=== PATIENT | female | born 1945 | race Caucasian/White ===

== ENCOUNTER → 2020-11-01 11:29 | Outpatient (CLI) | payer MEDICARE, BC, SELFPAY ==
[2020-11-01 12:49] LABS: COVID19 -Nasal RAPID Negative (Negative)
== END ==
PROVIDERS: PCP Internal Medicine; Referring Provider Student in an Organized Health Care Education/Training Program; Visit Provider Student in an Organized Health Care Education/Training Program
DX: Z01.812 Encounter for preprocedural laboratory examination (principal); Z20.822 Contact with and (suspected) exposure to COVID-19
CPT/HCPCS: 87635; C9803

== ENCOUNTER 2020-11-04 07:56 | Day surgery (SDC) | payer MEDICARE, BC, SELFPAY ==
[2020-11-04] MEDS: PROPARACAINE 0.5% OPHTH SOL 2 DROPS EYE-OP (08:39)
[2020-11-04 08:40] VITALS: BP 134/68; PULSE 67; RESP 18; TEMP 36.2; O2SAT 99; BMI 30.1
[2020-11-04] MEDS: CATARACT EYE COMPOUND (10 DROPS/SYRINGE) 3 DROPS EYE-OP (08:50)
--- NOTE | 2020-11-04 09:34 | PM.PREOP ---
Pre-operative Note Interval Note History & Physical reviewed/Exam performed by Physician: Yes Changes to H&P: No
--- NOTE | 2020-11-04 09:34 | PM.OP.1 ---
Operative Date/Time/Diagnoses Pre-op diagnosis: Nuclear cataract right eye Procedure & Clinicians Procedure: Cataract Surgery Same procedure as scheduled: Yes Surgeon: José Miguel Lee Anesthesia Type: MAC +/- and Sedation Operative Notes Procedure in detail: Patient brought to the operating suite. Tetracaine drops placed in the right eye. Patient was prepped and draped in sterile manner. Wire lid speculum was placed in the eye. Betadine drops were placed on the eye. This was irrigated. Lidocaine jelly was placed on the eye. A paracentesis port was created with a side-port blade. 0.1 mL 1% preservative free lidocaine was injected into the anterior chamber. The anterior chamber was deepened with viscoelastic. 2.6 mm keratome was used to create a temporal clear corneal incision. Cystotome and Utrata forceps were used to create continuous tear capsulorrhexis. Balanced salt solution was used to hydro dissect the nucleus. The phacoemulsification handpiece was inserted and the nucleus was removed using the stop and chop technique. The irrigation aspiration handpiece was inserted and the remaining cortex was removed. Anterior chamber was deepened with viscoelastic. An Ortiz ZCB00 intraocular lens with a power of 19.5 was injected into the capsular bag. Irrigation aspiration handpiece was inserted and the remaining viscoelastic was removed. Incision was hydrated with balanced salt solution and found to be leak free with pressure with Weck-Pia sponges. 0.1 mL Vigamox injected anterior chamber. 0.3 mL Kenalog 10 mg was injected subconjunctivally. Lid speculum was removed. The patient left the operating room in excellent condition. Complications: none Post-operative Condition: stable Disposition: same day surgery
[2020-11-04] MEDS: MOXIFLOXACIN INJ 4 MG/0.8 ML VIAL 0.5 MG EYE-OP (09:50)
[2020-11-04] MEDS: PHENYLEPHRINE/LIDOCAINE VIAL (OR) 0.2 ML EYE-OP (09:50)
[2020-11-04] MEDS: TRIAMCINOLONE 50 MG/5 ML VIAL INJ (09:50)
[2020-11-04] MEDS: LIDOCAINE 2% (GLYDO) 6 ML GEL TOP (09:51)
[2020-11-04] MEDS: TETRACAINE 0.5% OPHTH DROPS 4 ML 2 DROPS EYE-OP (09:51)
[2020-11-04] MEDS: BALANCED SALT IRRIG SOLN NO.2 500 ML, EPINEPHrine 1 MG IRR (09:51)
[2020-11-04] MEDS: CHONDROIDTIN/SOD HYALURONATE 1.05 ML SYRINGE INTRAOCULA (09:51)
[2020-11-04 10:05] VITALS: BP 119/68; PULSE 63; RESP 14; TEMP 36.2; O2SAT 99
== END 2020-11-04 10:20 | disposition home or self-care (01) ==
PROVIDERS: PCP Internal Medicine; Referring Provider Ophthalmology; Visit Provider Ophthalmology
PROC: (CPT 66984; principal; 2020-11-04 09:45)
DX: H25.11 Age-related nuclear cataract, right eye (principal); I10 Essential (primary) hypertension; F41.9 Anxiety disorder, unspecified
CPT/HCPCS: 66984; J0171; J2250; J3010; J3301

== ENCOUNTER → 2020-12-22 13:56 | Outpatient (CLI) | payer MEDICARE, BC, SELFPAY ==
[2020-12-22 14:31] LABS: Add Manual Diff / Slide Review NO; Basophils Absolute Auto 100 /uL (0-100); Basophils Percent Auto 0.8 % (0-2); Eosinophils Absolute Auto 200 /uL (0-450); Eosinophils Percent Auto 2.8 % (2-4); Hematocrit 33.8 % (36-46); Hemoglobin 11.3 g/dL (12.0-16.0); Lymphocytes Absolute Auto 1600 /uL (1100-4500); Lymphocytes Percent Auto 19.5 % (25-40); Mean Corpuscular HGB Conc 33.4 % (30-36); Mean Corpuscular Hemoglobin 29.4 PG (26-34); Mean Corpuscular Volume 88.1 fL (80-100); Monocytes Absolute Auto 600 /uL (0-900); Monocytes Percent Auto 6.9 % (3-14); Neutrophils Absolute Auto 5900 /uL (1500-7000); Platelet Count 281 X10^3/uL (150-400); Red Blood Cell Count 3.84 X10^6/uL (4.0-5.2); Red Cell Distribution Width 13.3 % (11.6-14.8); White Blood Cell Count 8.4 X10^3/uL (4.5-11.0)
[2020-12-22 15:02] LABS: Alanine Aminotransferase 17 IU/L (<35); Albumin 4.1 g/dL (3.5-5.0); Albumin Globulin Ratio 1.2 (1.0-2.8); Alkaline Phosphatase 78 U/L (38-126); Aspartate Aminotransferase 22 IU/L (14-36); BUN Creatinine Ratio 17.9 (6-22); Bilirubin Total 0.2 mg/dL (0.2-1.3); Blood Urea Nitrogen 17 mg/dL (7-17); Calcium 9.6 mg/dL (8.4-10.2); Carbon Dioxide 23 mmol/L (22-32); Chloride 106 mmol/L (98-107); Estimated Glomerular Filt Rate 57.7 mL/min (>60); Globulin 3.3 g/dL (1.7-4.1); Glucose 156 mg/dL (80-110); HEMOLYSIS < 15 (0-50); Iron 53 ug/dL (37-170); Potassium 4.3 mmol/L (3.4-5.1); Sodium 137 mmol/L (137-145); Total Protein 7.4 g/dL (6.3-8.2)
[2020-12-22 15:12] LABS: Percent Iron Saturation 16 % (15-50); Total Iron Binding Capacity 334 ug/dL (265-497); Transferrin 270 mg/dL (206-381)
[2020-12-22 15:13] LABS: Free T4, Direct Thyroxine 1.14 ng/dL (0.78-2.19)
[2020-12-22 15:27] LABS: Thyroid Stimulating Hormone 1.64 uIU/mL (0.47-4.68)
[2020-12-22 15:45] LABS: Vitamin B12 210 pg/mL (239-931)
[2020-12-22 15:49] LABS: Vitamin D 25 Hydroxy (D3) 34.4 ng/mL (30.0-100.0)
== END ==
PROVIDERS: PCP Internal Medicine; Referring Provider Internal Medicine; Visit Provider Internal Medicine
DX: E55.9 Vitamin D deficiency, unspecified (principal); I10 Essential (primary) hypertension; K59.09 Other constipation; L65.9 Nonscarring hair loss, unspecified; R11.0 Nausea
CPT/HCPCS: 36415; 80053; 82306; 82607; 83540; 83550; 84439; 84443; 85025

== ENCOUNTER → 2021-01-05 12:56 | Outpatient (CLI) | payer MEDICARE, BC, SELFPAY ==
[2021-01-05 16:07] LABS: COVID19 -Nasal RAPID Negative (Negative)
== END ==
PROVIDERS: PCP Internal Medicine; Visit Provider Physician Assistant
DX: Z01.812 Encounter for preprocedural laboratory examination (principal); Z20.822 Contact with and (suspected) exposure to COVID-19
CPT/HCPCS: 87635; C9803

== ENCOUNTER 2021-01-06 10:22 | Day surgery (SDC) | payer MEDICARE, BC, SELFPAY ==
[2021-01-06] MEDS: PROPARACAINE 0.5% OPHTH SOL 2 DROPS EYE-OP (10:48)
[2021-01-06 10:51] VITALS: BP 144/67; PULSE 50; RESP 18; TEMP 36.6; O2SAT 98; BMI 31.8
--- NOTE | 2021-01-06 10:54 | PM.PREOP ---
Pre-operative Note Interval Note History & Physical reviewed/Exam performed by Physician: Yes Changes to H&P: No
[2021-01-06] MEDS: CATARACT EYE COMPOUND (10 DROPS/SYRINGE) 3 DROPS EYE-OP (10:55)
--- NOTE | 2021-01-06 10:55 | PM.OP.1 ---
Operative Date/Time/Diagnoses Pre-op diagnosis: Nuclear Cataract Left eye Post-op diagnosis: same Procedure & Clinicians Same procedure as scheduled: Yes Surgeon: José Miguel Lee Anesthesia Type: MAC +/- and Sedation Operative Notes Procedure in detail: Patient brought to the operating suite. Tetracaine drops placed in the left eye. Patient was prepped and draped in sterile manner. Wire lid speculum was placed in the eye. Betadine drops were placed on the eye. This was irrigated. Lidocaine jelly was placed on the eye. A paracentesis port was created with a side-port blade. 0.1 mL 1% preservative free lidocaine was injected into the anterior chamber. The anterior chamber was deepened with viscoelastic. 2.6 mm keratome was used to create a temporal clear corneal incision. Cystotome and Utrata forceps were used to create continuous tear capsulorrhexis. Balanced salt solution was used to hydro dissect the nucleus. The phacoemulsification handpiece was inserted and the nucleus was removed using the stop and chop technique. The irrigation aspiration handpiece was inserted and the remaining cortex was removed. Anterior chamber was deepened with viscoelastic. An Ortiz DIB00 intraocular lens with a power of 20.5 was injected into the capsular bag. Irrigation aspiration handpiece was inserted and the remaining viscoelastic was removed. Incision was hydrated with balanced salt solution and found to be leak free with pressure with Weck-Pia sponges. 0.1 mL Vigamox injected anterior chamber. 0.3 mL Kenalog 10 mg was injected subconjunctivally. Lid speculum was removed. The patient left the operating room in excellent condition. Complications: none Post-operative Condition: stable Disposition: same day surgery
[2021-01-06] MEDS: TRIAMCINOLONE 50 MG/5 ML VIAL INJ (11:53)
[2021-01-06] MEDS: MOXIFLOXACIN INJ 4 MG/0.8 ML VIAL 0.5 MG EYE-OP (11:54)
[2021-01-06] MEDS: PHENYLEPHRINE/LIDOCAINE VIAL (OR) 0.2 ML EYE-OP (11:54)
[2021-01-06] MEDS: TETRACAINE 0.5% OPHTH DROPS 4 ML 2 DROPS EYE-OP (11:54)
[2021-01-06] MEDS: CHONDROIDTIN/SOD HYALURONATE 1.05 ML SYRINGE INTRAOCULA (11:54)
[2021-01-06] MEDS: LIDOCAINE 2% (GLYDO) 6 ML GEL TOP (11:55)
[2021-01-06] MEDS: BALANCED SALT IRRIG SOLN NO.2 500 ML, EPINEPHrine 1 MG IRR (11:55)
[2021-01-06 12:12] VITALS: BP 132/73; PULSE 49; RESP 14; TEMP 36.6; O2SAT 97
[2021-01-06 12:50] VITALS: BP 143/68; PULSE 46; RESP 14; TEMP 36.8; O2SAT 98
== END 2021-01-06 12:56 | disposition home or self-care (01) ==
PROVIDERS: PCP Internal Medicine; Referring Provider Ophthalmology; Visit Provider Ophthalmology
PROC: (CPT 66984; principal; 2021-01-06 12:15)
DX: H25.12 Age-related nuclear cataract, left eye (principal); I10 Essential (primary) hypertension; F41.9 Anxiety disorder, unspecified; K21.9 Gastro-esophageal reflux disease without esophagitis; F32.9 Major depressive disorder, single episode, unspecified
CPT/HCPCS: 66984; J0171; J2250; J3010; J3301

== ENCOUNTER → 2021-04-23 16:42 | Outpatient (CLI) | payer MEDICARE, BC, SELFPAY ==
[2021-04-23 17:47] LABS: BUN Creatinine Ratio 13.2 (6-22); Blood Urea Nitrogen 12 mg/dL (7-17); Calcium 9.6 mg/dL (8.4-10.2); Carbon Dioxide 27 mmol/L (22-32); Chloride 102 mmol/L (98-107); Estimated Glomerular Filt Rate > 60.0 mL/min (>60); Glucose 114 mg/dL (80-110); HEMOLYSIS < 15 (0-50); Potassium 4.1 mmol/L (3.4-5.1); Sodium 138 mmol/L (137-145)
== END ==
PROVIDERS: PCP Internal Medicine; Referring Provider Internal Medicine; Visit Provider Internal Medicine
DX: I10 Essential (primary) hypertension (principal)
CPT/HCPCS: 36415; 80048

== ENCOUNTER → 2021-07-13 17:34 | Outpatient (CLI) | payer MEDICARE, BC, SELFPAY ==
--- NOTE | 2021-07-13 | DI.MG.S_ITS ---
BILATERAL DIGITAL SCREENING MAMMOGRAM 3D/2D WITH CAD: 07/13/2021 CLINICAL: Routine screening. Family history of breast cancer. Comparison is made to exams dated: 01/29/2019 mammogram and 01/18/2019 mammogram - outside. The tissue of both breasts is heterogeneously dense. This may lower the sensitivity of mammography. Current study was also evaluated with a Computer Aided Detection (CAD) system. No significant masses, calcifications, or other findings are seen in either breast. There has been no significant interval change. IMPRESSION: NEGATIVE There is no mammographic evidence of malignancy. A 1 year screening mammogram is recommended. This exam was interpreted at Station ID: [id number]. NOTE: For mammograms, a report in lay terms will be sent to the patient. Approximately 15% of breast malignancies will not be visualized mammographically. In the management of a palpable breast mass, a negative mammogram must not discourage biopsy of a clinically suspicious lesion. Electronically Signed By: Avel alonso/julee:07/21/2021 17:36:38 letter sent: Normal Exam ACR BI-RADS Category 1: Negative 3341F
== END ==
PROVIDERS: PCP Internal Medicine; Referring Provider Internal Medicine; Visit Provider Internal Medicine
DX: Z12.31 Encounter for screening mammogram for malignant neoplasm of breast (principal); Z80.3 Family history of malignant neoplasm of breast
CPT/HCPCS: 77063; 77066; 77067; G0279

== ENCOUNTER → 2021-08-04 16:05 | Outpatient (CLI) | payer MEDICARE, BC, SELFPAY ==
[2021-08-04 17:55] LABS: Estimated Glomerular Filt Rate > 60.0 mL/min (>60)
== END ==
PROVIDERS: PCP Internal Medicine; Referring Provider Internal Medicine; Visit Provider Internal Medicine
DX: Z01.812 Encounter for preprocedural laboratory examination (principal)
CPT/HCPCS: 36415; 82565

== ENCOUNTER → 2021-09-02 12:47 | Outpatient (CLI) | payer MEDICARE, BC, SELFPAY ==
--- NOTE | 2021-09-02 | DI.CT.S_ITS ---
PROCEDURE: CT ABDOMEN PELVIS W CON INDICATIONS: ABDOMINAL PAIN TECHNIQUE: After the administration of oral and IV contrast, axial sections were acquired from the lung bases to the pubic symphysis. Coronal and sagittal reformats were performed. For radiation dose reduction, the following was used: automated exposure control, adjustment of mA and/or kV according to patient size. COMPARISON: None. FINDINGS: Image quality: Excellent. Lung bases: Unremarkable. Heart: No significant findings. ABDOMEN: Liver: Diffuse decreased attenuation, compatible hepatic steatosis. 8 mm hypoattenuating lesion in the right hepatic lobe, most consistent with a cyst or hemangioma. Gallbladder: Surgically absent. Biliary ducts: Unremarkable. Pancreas: Unremarkable. Spleen: Unremarkable. Adrenal Glands: Unremarkable. Kidneys and Ureters: Unremarkable. Stomach and Bowel: No evidence of intestinal obstruction or inflammatory change. The appendix is not well visualized. Mild to moderate stool burden throughout the colon. Peritoneum: No abnormal intraperitoneal fluid. No free air. Ventral Wall: Small periumbilical fat containing hernia. Abdominal Nodes: No retroperitoneal or mesenteric adenopathy by size criteria. Vessels: Aorta and inferior vena cava are normal in size. PELVIS: Pelvic Organs: The uterus appears surgically absent. A 3.5 cm hypoattenuating lesion is seen in the right adnexa, most consistent with an ovarian or peritoneal inclusion cyst. Bladder: Unremarkable. Pelvic Nodes: No enlarged lymph nodes. Miscellaneous: No inguinal hernias are seen. Bones: Grade 1 anterolisthesis at L4-5. Moderate to advanced disc height loss with vacuum phenomena at L5-S1. Multifocal degenerative change. IMPRESSION: 1. No significant abnormality. Dictated by: Trino Llamas M.D. on 09/02/2021 at 16:18 Approved by: Trino Llamas M.D. on 09/02/2021 at 16:22
[2021-09-02 13:31] LABS: BUN Creatinine Ratio 14.1 (6-22); Blood Urea Nitrogen 14 mg/dL (7-17); Estimated Glomerular Filt Rate 54.8 mL/min (>60)
== END ==
PROVIDERS: PCP Internal Medicine; Referring Provider Internal Medicine; Visit Provider Internal Medicine
DX: R10.9 Unspecified abdominal pain (principal); R11.0 Nausea; K42.9 Umbilical hernia without obstruction or gangrene; Z90.49 Acquired absence of other specified parts of digestive tract
CPT/HCPCS: 36415; 74177; 82565; 84520; Q9967

== ENCOUNTER → 2022-01-22 13:37 | Outpatient (CLI) | payer MEDICARE, BC, SELFPAY ==
--- NOTE | 2022-01-22 13:39 | DI.MG.S_ITS ---
UNILATERAL RIGHT DIGITAL DIAGNOSTIC MAMMOGRAM 3D/2D: 01/22/2022 CLINICAL: Diffuse right breast pain. Comparison is made to exams dated: 07/13/2021 mammogram - [facility], 06/18/2019 ultrasound, and 01/29/2019 ultrasound - outside. The tissue of right breast is heterogeneously dense. This may lower the sensitivity of mammography. No significant masses, calcifications, or other findings are seen in the breast. Specifically, no finding to explain the patient's chronic subareolar pain. IMPRESSION: NEGATIVE There is no abnormality seen in the right breast to correspond with the chronic pain in the sub-areolar depth. There is no mammographic evidence of malignancy. Return to annual mammogram screening schedule is recommended. Future imaging is recommended as follows: 07/14/2022 screening mammogram. The patient should follow up with primary care provider for chronic symptoms. Findings and recommendations were conveyed to the patient at time of exam. Based on the Tyrer Cuzick model (a risk assessment model) the patient's lifetime risk is 4.8% and her 10 year risk is 4.8%. According to the ACR, ACS, and NCCN guidelines, an annual breast MRI exam along with mammogram is recommended if the patient's lifetime risk is 20% or greater. This exam was interpreted at Station ID: [id number]. NOTE: For mammograms, a report in lay terms will be sent to the patient. Approximately 15% of breast malignancies will not be visualized mammographically. In the management of a palpable breast mass, a negative mammogram must not discourage biopsy of a clinically suspicious lesion. Electronically Signed By: Lyric thurman/:01/22/2022 14:23:26 letter sent: Normal Exam ACR BI-RADS Category 1: Negative 3341F
== END ==
PROVIDERS: PCP Internal Medicine; Referring Provider Internal Medicine; Visit Provider Internal Medicine
DX: N64.4 Mastodynia (principal)
CPT/HCPCS: 77065; G0279

== ENCOUNTER → 2022-08-19 13:23 | Outpatient (CLI) | payer MEDICARE, BC, SELFPAY ==
--- NOTE | 2022-08-19 13:25 | DI.MG.S_ITS ---
BILATERAL DIGITAL DIAGNOSTIC MAMMOGRAM 3D/2D: 08/19/2022 CLINICAL: Right breast pain. Comparison is made to exams dated: 01/22/2022 mammogram, 07/13/2021 mammogram - [facility], 06/18/2019 ultrasound, and 01/29/2019 mammogram - outside. Both breasts are heterogeneously dense, which may obscure small masses (category c / 51-75% glandular tissue). No significant masses, calcifications, or other findings are seen in either breast. There has been no significant interval change. IMPRESSION: NEGATIVE There is no mammographic evidence of malignancy. A 1 year screening mammogram is recommended. Based on the Tyrer Cuzick model (a risk assessment model) the patient's lifetime risk is 4.8% and her 10 year risk is 4.8%. According to the ACR, ACS, and NCCN guidelines, an annual breast MRI exam along with mammogram is recommended if the patient's lifetime risk is 20% or greater. This exam was interpreted at Station ID: [id number]. NOTE: For mammograms, a report in lay terms will be sent to the patient. Approximately 15% of breast malignancies will not be visualized mammographically. In the management of a palpable breast mass, a negative mammogram must not discourage biopsy of a clinically suspicious lesion. Electronically Signed By: Spenser Cortes M.D., jr/julee:08/19/2022 13:55:31 letter sent: Normal Exam ACR BI-RADS Category 1: Negative 3341F
== END ==
PROVIDERS: PCP Internal Medicine; Referring Provider Internal Medicine; Visit Provider Internal Medicine
DX: N64.4 Mastodynia (principal)
CPT/HCPCS: 77066; G0279

== ENCOUNTER → 2022-08-23 16:09 | Outpatient (CLI) | payer MEDICARE, BC, SELFPAY ==
[2022-08-23 16:58] LABS: Add Manual Diff / Slide Review NO; Basophils Absolute Auto 100 /uL (0-100); Basophils Percent Auto 0.9 % (0-2); Eosinophils Absolute Auto 200 /uL (0-450); Eosinophils Percent Auto 1.8 % (2-4); Hematocrit 36.5 % (36-46); Hemoglobin 12.2 g/dL (12.0-16.0); Lymphocytes Absolute Auto 2200 /uL (1100-4500); Mean Corpuscular HGB Conc 33.5 % (30-36); Mean Corpuscular Hemoglobin 28.9 PG (26-34); Mean Corpuscular Volume 86.1 fL (80-100); Monocytes Absolute Auto 600 /uL (0-900); Monocytes Percent Auto 6.2 % (3-14); Neutrophils Absolute Auto 6600 /uL (1500-7000); Neutrophils Percent Auto 68.1 % (50-75); Platelet Count 278 X10^3/uL (150-400); Red Blood Cell Count 4.24 X10^6/uL (4.0-5.2); Red Cell Distribution Width 13.3 % (11.6-14.8); White Blood Cell Count 9.7 X10^3/uL (4.5-11.0)
[2022-08-23 17:09] LABS: Alanine Aminotransferase 23 IU/L (<35); Albumin 4.2 g/dL (3.5-5.0); Albumin Globulin Ratio 1.3 (1.0-2.8); Alkaline Phosphatase 91 U/L (38-126); Aspartate Aminotransferase 23 IU/L (14-36); BUN Creatinine Ratio 15.6 (6-22); Bilirubin Total 0.3 mg/dL (0.2-1.3); Blood Urea Nitrogen 12 mg/dL (7-17); Calcium 9.4 mg/dL (8.4-10.2); Carbon Dioxide 25 mmol/L (22-32); Chloride 100 mmol/L (98-107); Estimated Glomerular Filt Rate > 60 mL/min (>60); Globulin 3.3 g/dL (1.7-4.1); Glucose 147 mg/dL (80-110); HEMOLYSIS < 15 (0-50); Potassium 4.1 mmol/L (3.4-5.1); Sodium 137 mmol/L (137-145); Total Protein 7.5 g/dL (6.3-8.2)
[2022-08-23 17:39] LABS: TSH w/ Reflex to FT4 1.71 uIU/mL (0.47-4.68)
[2022-08-23 18:03] LABS: Erythrocyte Sedimentation Rate 40 MM/HR (0-20)
== END ==
PROVIDERS: PCP Internal Medicine; Referring Provider Internal Medicine; Visit Provider Internal Medicine
DX: M31.6 Other giant cell arteritis (principal); I10 Essential (primary) hypertension; F41.1 Generalized anxiety disorder; R25.1 Tremor, unspecified
CPT/HCPCS: 36415; 80053; 84443; 85025; 85651

== ENCOUNTER → 2022-12-29 08:48 | Outpatient (CLI) | payer MEDICARE, BC, SELFPAY ==
--- NOTE | 2022-12-29 | DI.NM.S_ITS ---
PROCEDURE: NM GASTRIC EMPTYING STUDY RADIOPHARMACEUTICAL: 1 mCi Tc-99m sulfur colloid in an egg sandwich. INDICATIONS: NAUSEA/ABDOMINAL PAIN, RUQ TECHNIQUE: A Tc-99m labeled sulfur colloid labeled egg sandwich or oatmeal was served to the patient. Anterior and posterior planar images of the abdomen were obtained at 0 minutes and 30 minutes, then at hourly intervals up to 4 hours. The patient was upright and ambulating during the interval. COMPARISON: None. FINDINGS: The stomach has normal size, morphology, and position. There is normal emptying of solid gastric contents from the stomach by visual inspection. No gastroesophageal reflux is visualized. The percentage of tracer retained at specific time points are as follows: Time point Percent gastric retention Normal range 30 minutes 86% 70% or more 1 hour 76% 30% to 90% 2 hours 44% 60% or less 3 hours 21% 30% or less 4 hours 6% 10% or less IMPRESSION: Normal gastric emptying study. Dictated by: Chantal Hernandez M.D. on 12/29/2022 at 18:41 Approved by: Chantal Hernandez M.D. on 12/29/2022 at 18:42
== END ==
PROVIDERS: PCP Internal Medicine; Referring Provider Internal Medicine Gastroenterology; Visit Provider Internal Medicine Gastroenterology
DX: R11.0 Nausea (principal); R10.11 Right upper quadrant pain
CPT/HCPCS: 78264; A9541

== ENCOUNTER → 2023-05-25 12:39 | Outpatient (CLI) | payer MEDICARE, BC, SELFPAY ==
--- NOTE | 2023-05-25 | DI.RAD.S_ITS ---
PROCEDURE: FL UPPER GI SMALL BOWEL INDICATIONS: Right upper quadrant pain COMPARISON: None. FINDINGS: KUB: Preprocedural transition advisor film shows a normal bowel gas pattern. No suspicious abdominal calcifications. Visualized solid organ contours appear normal in size. No suspicious bony abnormalities. Esophagus: Air-contrast views demonstrate a normal mucosal pattern. On single-contrast views, there is normal peristalsis. No fixed strictures, extrinsic mass effects, or diverticula. There is a small sliding-type hiatal hernia present and some mild to moderate spontaneous gastroesophageal reflux noted during the examination. There is normal transit of a calibrated barium tablet through the esophagus. Stomach: The gastric lumen is normally distensible, and has normal rugal fold thickness. No mucosal masses or ulcers. The pylorus and duodenal bulb have a normal morphology. Small bowel: Duodenal folds appear normal in thickness. There is normal transit time of barium through the small intestine. Small bowel loops appear normal in caliber throughout. Jejunal and ileal folds are smooth and normal in thickness. No strictures, intraluminal masses, or extrinsic mass effects. The terminal ileum is identified and appears normal. IMPRESSION: 1. Small sliding-type hiatal hernia. 2. Mild to moderate spontaneous gastroesophageal reflux noted during the examination. Dictated by: Federico Choudhary M.D. on 05/25/2023 at 15:27 Approved by: Federico Choudhary M.D. on 05/25/2023 at 15:29
== END ==
PROVIDERS: PCP Internal Medicine; Referring Provider Internal Medicine Gastroenterology; Visit Provider Internal Medicine Gastroenterology
DX: R10.11 Right upper quadrant pain (principal); K44.9 Diaphragmatic hernia without obstruction or gangrene; K21.9 Gastro-esophageal reflux disease without esophagitis
CPT/HCPCS: 74240; 74248

== ENCOUNTER 2024-03-09 13:57 | Emergency (ER) | payer MEDICARE, BC, SELFPAY ==
[2024-03-09 14:06] VITALS: BP 161/84; PULSE 89; RESP 18; TEMP 37.1; O2SAT 97; BMI 32.2
--- NOTE | 2024-03-09 14:14 | DI.RAD.S_ITS ---
PROCEDURE: XR CHEST 1V INDICATIONS: chest pain TECHNIQUE: One view of the chest was acquired. COMPARISON: None. FINDINGS: Mild bilateral diffuse peribronchial thickening some of which may be related to expiratory result with mild subsegmental atelectasis although bronchitis, viral infection or other process could be considered. Mild calcifications of the aortic arch and mildly tortuous descending aorta. Mild to moderate degenerate changes of the thoracic spine and shoulders. Cardiopericardial silhouette and pulmonary vasculature within normal limits for portable AP view. No pneumothorax, no pleural effusion, no lobar consolidation IMPRESSION: Mild bilateral diffuse peribronchial thickening as discussed above, bronchitis, viral infection or other process could be considered. If symptoms persist or worsen, or there is high clinical suspicion of thoracic abnormality, CT could be performed. Dictated by: Alex Hazel M.D. on 03/09/2024 at 16:11 Approved by: Alex Hazel M.D. on 03/09/2024 at 16:13
--- NOTE | 2024-03-09 14:38 | EKG_ITS ---
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
[2024-03-09 14:46] VITALS: BP 155/69
[2024-03-09 14:54] LABS: Add Manual Diff / Slide Review NO; Basophils Absolute Auto 100 /uL (0-100); Basophils Percent Auto 1.3 % (0-2); Eosinophils Absolute Auto 200 /uL (0-450); Eosinophils Percent Auto 2.2 % (2-4); Hematocrit 37.9 % (36-46); Hemoglobin 12.8 g/dL (12.0-16.0); Lymphocytes Absolute Auto 2400 /uL (1100-4500); Lymphocytes Percent Auto 24.5 % (25-40); Mean Corpuscular HGB Conc 33.9 % (30-36); Mean Corpuscular Hemoglobin 29.3 PG (26-34); Mean Corpuscular Volume 86.6 fL (80-100); Monocytes Absolute Auto 600 /uL (0-900); Neutrophils Absolute Auto 6400 /uL (1500-7000); Platelet Count 288 X10^3/uL (150-400); Red Blood Cell Count 4.38 X10^6/uL (4.0-5.2); Red Cell Distribution Width 13.2 % (11.6-14.8); White Blood Cell Count 9.6 X10^3/uL (4.5-11.0)
[2024-03-09 14:57] LABS: PTT Partial Thromboplastin Tim 36 SECONDS (25.1-36.5)
[2024-03-09 15:00] LABS: Alanine Aminotransferase 25 IU/L (<35); Albumin 4.1 g/dL (3.5-5.0); Albumin Globulin Ratio 1.2 (1.0-2.8); Alkaline Phosphatase 110 U/L (38-126); Aspartate Aminotransferase 28 IU/L (14-36); BUN Creatinine Ratio 14.8 (6-22); Bilirubin Total 0.5 mg/dL (0.2-1.3); Blood Urea Nitrogen 13 mg/dL (7-17); Calcium 9.3 mg/dL (8.4-10.2); Carbon Dioxide 22 mmol/L (22-32); Chloride 98 mmol/L (98-107); Creatine Kinase 103 U/L (30-135); Estimated Glomerular Filt Rate > 60 mL/min (>60); Globulin 3.3 g/dL (1.7-4.1); Glucose 399 mg/dL (80-110); HEMOLYSIS < 15 (0-50); Lipase 175 U/L (23-300); Magnesium 1.5 mg/dL (1.6-2.3); Potassium 3.8 mmol/L (3.4-5.1); Sodium 130 mmol/L (137-145); Total Protein 7.4 g/dL (6.3-8.2)
[2024-03-09 15:05] VITALS: BP 137/86; PULSE 78; RESP 18; O2SAT 98
[2024-03-09 15:12] LABS: NT-proBNP (BNP-Adult 18+) 50 pg/mL (<450); Troponin I < 0.012 ng/mL (0.01-0.034)
--- NOTE | 2024-03-09 16:28 | ED_ITS ---
HPI - General Adult <Berta Rush PA-C - Last Filed: 03/09/24 17:41> General Chief complaint: Hypertension Stated complaint: sent by PCP, HBWen, Headache Time Seen by Provider: 03/09/24 16:28 Source: patient Mode of arrival: Ambulatory History of Present Illness HPI narrative: Patient is a very pleasant 79-year-old female that presents to the emergency room department after being sent to the emergency department by her primary care doctor's office. Patient presented to the office today for a follow-up appointment for some breast complaints that the patient has had recently. However, today in the patient's doctor's office her blood pressure was found to be quite elevated. After multiple checks of her blood pressure being elevated with a diastolic over 200 systolic being over 100 she was sent to the emergency department for further evaluation. However, the patient states that she did not take her medications prior to being seen in the primary care doctor's office. While the patient is here in the emergency department she complains of headache. Patient is under the impression that she is going to be seen by the primary care physician administrative personal assistant who sent her here to the emergency department. She currently has no other physical complaints except for headache which is ongoing. Patient has a longstanding history of migraines, she gets Botox injections every 3 months and is due for 1 at the end of this month. She also is being treated for a rash she currently has and has an appointment with dermatology at the end of February the beginning of March. She currently is using a cream she can not remember the name of it. Patient also states she recently has been dizzy and unsteady however she states this is an ongoing issue and not new. She states that last night while sitting on the toilet she fell kind of forward and hit her head on the door, there was no loss of consciousness and she was able to kind of right herself this happened while she was attempting to take down her onto her. Currently upon entering the room the patient is very unhappy with her weight, she is unhappy that the PA who sent her down from the primary care doctor's office has not come to see her and evaluate her and review with her the lab work that she had done here in the emergency room department. Unfortunately patient does not appear to understand that she was sent down to be evaluated here in the emergency department for her high blood pressure. Related Data Home Medications Medication Instructions Recorded Confirmed Tums 1 tab PO DAILY PRN Acid Reflux 08/19/20 03/09/24 meclizine 25 mg tablet 25 mg PO DAILY PRN Dizziness 08/19/20 03/09/24 ibuprofen 200 mg tablet (Motrin IB) 400 mg PO DAILY PRN migraine 12/18/21 03/09/24 headache lubiprostone 8 mcg capsule 8 mcg PO BID 09/05/23 03/09/24 Previous Rx's Medication Instructions Recorded naratriptan 2.5 mg tablet 2.5 mg PO Q4H PRN migraine 01/18/22 headache #14 tabs Disabled Parking #1 ea 09/17/22 bupropion HCl 300 mg 24 hr tablet, 300 mg PO DAILY #90 tabs 04/18/23 extended release omeprazole 40 mg capsule,delayed 40 mg PO DAILY #90 caps 09/01/23 release ondansetron 8 mg disintegrating 8 mg PO DAILY PRN nausea and 09/27/23 tablet vomiting #60 tabs tizanidine 4 mg tablet 4 mg PO DAILY PRN muscle 11/16/23 spasticity #30 tabs triamcinolone acetonide 0.1 % 1 applic topical TID #80 grams 11/22/23 topical cream lorazepam 1 mg tablet 1 mg PO BID PRN Anxiety #60 tabs 12/21/23 fluoxetine 20 mg capsule 20 mg PO DAILY #90 caps 02/10/24 lisinopril 10 mg tablet 10 mg PO DAILY #90 tabs 03/07/24 Allergies Allergy/AdvReac Type Severity Reaction Status Date / Time ibuprofen [From Motrin] AdvReac Severe Feet Verified 03/09/24 13:30 Swelling. Does not take Review of Systems <Berta Rush PA-C - Last Filed: 03/09/24 17:41> Review of Systems Narrative: Negative except as above Cardiovascular Comments: Uncontrolled hypertension in her primary care doctor's office, however, the patient had not taken her medications for her blood pressure prior to being seen in the emergency department. Neurologic Comments: Headache with an ongoing longstanding history of migraines. Did have head trauma yesterday, offered head CT patient refused and states she feels this is associated with her TMJ and her migraines. Patient History <Berta Rush PA-C - Last Filed: 03/09/24 17:41> Medical History Generalized anxiety disorder Headache (~1956) Chronic back pain (~2009) Chronic nausea Tremor Chronic vertigo (~2008) Chronic constipation Depression (~2009) GERD without esophagitis Chronic migraine Insomnia Hypertension, essential Surgical History S/P appy S/P cholecystectomy (~1983) S/P hysterectomy (~1981) Family History Father Accident Mother Diabetes mellitus Hypertension Stroke Brother Diabetes mellitus Brother History of heart disease Grandfather Kidney failure Social History household members: spouse Smoking Status: Never smoker alcohol intake: current Smoking Status: Never smoker alcohol intake frequency: a few times a month Substance Use Type: does not use Exam <Berta Rush PA-C - Last Filed: 03/09/24 17:41> Initial Vital Signs Initial Vital Signs: Vital Signs Temperature 98.7 F 03/09/24 14:06 Pulse Rate 89 03/09/24 14:06 Respiratory Rate 18 03/09/24 14:06 Blood Pressure 161/84 H 03/09/24 14:06 Pulse Oximetry 97 03/09/24 14:06 Oxygen Delivery Method Room Air 03/09/24 14:06 Reviewed, repeat blood pressure showed that her blood pressure has stabilized. Now has come down quite nicely. Const General: cooperative, healthy appearing, comfortable, well developed, well groomed, No acute distress, No in distress and No anxious HENMT Head: normal to inspection, normocephalic and atraumatic Eyes Pupils: PERRL EOM: EOM intact bilaterally Neck Neck: normal visual inspection and full ROM Resp Effort & Inspection: normal respiratory effort and able to speak in complete sentences Auscultation: clear to auscultation bilaterally, no bronchovesicular breath sounds, no crackles, no rales, no rhonchi and no wheezes Cardio Rate: regular rate Rhythm: regular rhythm Heart Sounds: S1 normal and S2 normal Skin Rashes: rashes noted (Bilateral lower extremities and she is some itching to her hands) Neuro General: patient alert, patient awake, patient oriented x3, oriented, gait normal, moves all extremities and CN's II-XI intact bilaterally Cognition: normal cognition Speech: speech normal Gait: normal gait Motor: muscle tone normal throughout and strength 5/5 throughout Psych Appearance: grossly normal and well kempt Mental Status: mental status grossly normal Speech and Movement: speech and movement normal Mood: congruent mood Affect: normal affect Attitude: cooperative Thought Process: normal Thought Content: normal Judgment: judgment good <Jasmina Adhikari DO - Last Filed: 03/10/24 08:42> Initial Vital Signs Initial Vital Signs: Vital Signs Temperature 98.7 F 03/09/24 14:06 Pulse Rate 89 03/09/24 14:06 Respiratory Rate 18 03/09/24 14:06 Blood Pressure 161/84 H 03/09/24 14:06 Pulse Oximetry 97 03/09/24 14:06 Oxygen Delivery Method Room Air 03/09/24 14:06 Course <Berta Rush PA-C - Last Filed: 03/09/24 17:41> Orders Ordered: ED Orders 03/09/24 14:14 XR chest 1V Stat EKG-12 Lead Stat 03/09/24 14:33 Complete Blood Count AUTO DIFF Stat Comprehensive Metabolic Panel Stat Lipase Stat Magnesium Stat NT-proBNP (BNP-Adult 18+) Stat PTT Partial Thromboplastin [place] Stat Prothrombin Time INR Stat Troponin & CK Cardiac Panel Stat Vital Signs Vital signs: Vital Signs - 8 hr 03/09/24 14:06 03/09/24 14:46 03/09/24 15:05 Temperature 98.7 F Pulse Rate 89 78 Respiratory Rate 18 18 Blood Pressure 161/84 H 155/69 H 137/86 Pulse Oximetry 97 98 Oxygen Delivery Method Room Air Room Air <DO Allen Cox Last Filed: 03/10/24 08:42> Orders Ordered: ED Orders 03/09/24 14:14 XR chest 1V Stat EKG-12 Lead Stat 03/09/24 14:33 Complete Blood Count AUTO DIFF Stat Comprehensive Metabolic Panel Stat Lipase Stat Magnesium Stat NT-proBNP (BNP-Adult 18+) Stat PTT Partial Thromboplastin [place] Stat Prothrombin Time INR Stat Troponin & CK Cardiac Panel Stat Vital Signs Vital signs: Vital Signs - 8 hr 03/09/24 14:06 03/09/24 14:46 03/09/24 15:05 Temperature 98.7 F Pulse Rate 89 78 Respiratory Rate 18 18 Blood Pressure 161/84 H 155/69 H 137/86 Pulse Oximetry 97 98 Oxygen Delivery Method Room Air Room Air Medical Decision Making <Berta Rush PA-C - Last Filed: 03/09/24 17:41> Lab Data Lab results narrative: Her labs are reviewed, her blood sugar is elevated at 399. Patient does not have any history of type 2 diabetes. Hemoglobin A1c is added onto her labs. I discussed the findings with the attending. Plan is to add the hemoglobin A1c, and have her follow up with her primary care doctor. The patient is made aware of her elevated blood sugar. And my addition of the hemoglobin A1c, I have asked her to call her primary care doctor for follow-up. 03/09/24 14:33 03/09/24 14:33 Labs: Lab Results 03/09/24 03/09/24 Range/Units 14:14 14:33 WBC 9.6 (4.5-11.0) X10^3/uL RBC 4.38 (4.0-5.2) X10^6/uL Hgb 12.8 (12.0-16.0) g/dL Hct 37.9 (36-46) % MCV 86.6 (80-100) fL MCH 29.3 (26-34) PG MCHC 33.9 (30-36) % RDW 13.2 (11.6-14.8) % Plt Count 288 (150-400) X10^3/uL Neut % (Auto) 66.0 (50-75) % Lymph % (Auto) 24.5 L (25-40) % [place] % (Auto) 6.0 (3-14) % Eos % (Auto) 2.2 (2-4) % Baso % (Auto) 1.3 (0-2) % Neut # (Auto) 6400 (8546-7174) /uL Lymph # (Auto) 2400 (8428-5462) /uL [place] # (Auto) 600 (0-900) /uL Eos # (Auto) 200 (0-450) /uL Baso # (Auto) 100 (0-100) /uL PT 12.0 (9.4-12.5) SECONDS INR 1.0 (0.9-1.3) APTT 36 (25.1-36.5) SECONDS Sodium 130 L (137-145) mmol/L Potassium 3.8 (3.4-5.1) mmol/L Chloride 98 (98-107) mmol/L Carbon Dioxide 22 (22-32) mmol/L BUN 13 (7-17) mg/dL Creatinine 0.88 (0.52-1.04) mg/dL Estimated GFR > 60 (>60) mL/min BUN/Creatinine Ratio 14.8 (6-22) Glucose 399 H (80-110) mg/dL Hemoglobin A1c 12.5 H (4.0-6.0) % Calcium 9.3 (8.4-10.2) mg/dL Magnesium 1.5 L (1.6-2.3) mg/dL Total Bilirubin 0.5 (0.2-1.3) mg/dL AST 28 (14-36) IU/L ALT 25 (<35) IU/L Alkaline Phosphatase 110 (38-126) U/L Total Creatine Kinase 103 (30-135) U/L Troponin I < 0.012 (0.01-0.034) ng/mL NT-Pro-B Natriuret Pep 50 (<450) pg/mL Total Protein 7.4 (6.3-8.2) g/dL Albumin 4.1 (3.5-5.0) g/dL Globulin 3.3 (1.7-4.1) g/dL Albumin/Globulin Ratio 1.2 (1.0-2.8) Lipase 175 (23-300) U/L Reviewed all lab work within normal limits except for a sodium of 130 and a glucose of 399. Patient does not have a documented history diabetes, she currently does not have any documentation of medications associated with diabetes. Imaging Data Chest x-ray: Radiologist's Impression: [address] [address] XRay Report Signed Patient: Ashleigh Higgins MR#: [id number] : 1945 Acct:[id number] Age/Sex: 79 / F Date of Service: 03/09/24 Loc: ED Accession Number: [id number] Procedure: XR chest 1V Ordering Provider: Jasmina Adhikari D.O. PROCEDURE: XR CHEST 1V INDICATIONS: chest pain TECHNIQUE: One view of the chest was acquired. COMPARISON: None. FINDINGS: Mild bilateral diffuse peribronchial thickening some of which may be related to expiratory result with mild subsegmental atelectasis although bronchitis, viral infection or other process could be considered. Mild calcifications of the aortic arch and mildly tortuous descending aorta. Mild to moderate degenerate changes of the thoracic spine and shoulders. Cardiopericardial silhouette and pulmonary vasculature within normal limits for portable AP view. No pneumothorax, no pleural effusion, no lobar consolidation IMPRESSION: Mild bilateral diffuse peribronchial thickening as discussed above, bronchitis, viral infection or other process could be considered. If symptoms persist or worsen, or there is high clinical suspicion of thoracic abnormality, CT could be performed. Dictated by: Alex Hazel M.D. on 03/09/2024 at 16:11 Approved by: Alex Hazel M.D. on 03/09/2024 at 16:13 ECG Data Interpretation: [place] [address] Electrocardiogram Draft Patient: Ashleigh Higgins MR#: [id number] : 1945 Acct:[id number] Age/Sex: 79 / F Date of Service: 03/09/24 Loc: ED Accession Number: [id number] Procedure: EKG-12 Lead Ordering Provider: Jasmina Adhikari D.O. [address] [address] Test Date: 2024-03-09 Pat Name: Ashleigh Maynard Department: [facility] Room: Gender: Female Acute Care Assistant: MITCHEL : 1945 Requested By: Order Number: [id number] Reading MD: Measurements Intervals [place] Rate: 77 P: 49 MT: 174 QRS: 0 QRSD: 74 T: 22 QT: 370 QTc: 418 Interpretive Statements Normal sinus rhythm Nonspecific T wave abnormality MDM Narrative Medical decision making narrative: Patient is a pleasant 79-year-old female who was sent down to the emergency department by her primary care doctor of hypertension, the patient presented to the primary care doctor's office for follow up of some breast issues she is currently being treated for. Patient had not taken her antihypertensive heard being seen in the primary care doctor's office. She would 2 readings that were quite elevated, which concerned her primary care doctor's office so they sent her to the emergency department. She had an extensive workup done here in the emergency department which was essentially negative for any acute findings. The only major findings were a blood sugar of 399. Patient does not have any history of type 2 diabetes. Hemoglobin A1c was added. And the patient was asked to follow up with her primary care doctor to discuss the findings of a hemoglobin A1c that was added onto her lab work. Patient during our discussion did state that she recently had a fall last night she was sitting on the toilet, she stood to take down her underwear, and felt slightly floor hitting her head on the door. There was no loss of consciousness. She was able to right herself. She does today have a headache which she states is not like her normal migraines. Head CT was offered to the patient. The patient refused head CT states that she feels the headache she currently has associated with her chronic headaches, and her TMJ. The patient states that her lab work is all negative except for elevated blood sugar which she will dressed. She states that currently her blood pressure has right it itself, she would like to be discharged home so she can take her headache medication, and take her other medications. Advised the patient of reasons to present back to the emergency room department. Supportive therapy education ED precautions were given to patient prior to her being discharged. I encouraged the patient to take her medications prior to being seen in the the primary care doctor's office. I advised her that if she does not take her medications prior to being seen and she has hypertension in the primary care doctor's office they will send her back to the emergency room department to be further evaluated. Unfortunately the patient did not understand that she was not going to be seen and evaluated by her primary care doctor/PA here in the emergency department. When I entered the room the patient was on the phone was very angry that she had not been seen by her primary care physician administrative personal assistant in the emergency room department, she was waiting for her to come down and review with her the findings that were done here in the emergency department i.e. review her EKG, chest x-ray, lab work with her. It was odd to me that she had no understanding her recollection that she would not be seen evaluated by her primary care doctor and that she would be seen and evaluated by 1 of the providers here in the emergency room department in the care had been actually transitioned over to an emergency room department provider. However, after I explained to her that when the patient is transferred down to the emergency department all care was then transferred to 1 of the providers here in the emergency department the patient then understood exactly what happened. Patient then became calm and discussion ensued. The patient was reviewed her exam was negative for any substantial acute findings. I reviewed with her all of her lab work, EKG, chest x-ray. All of the findings were explained to her. We reviewed that her lab work was negative for a substantial acute findings except elevated blood sugar which was concerning for perhaps a onset of type 2 diabetes which he currently has not been diagnosed with. Currently not taking any medications for. I advised her that a hemoglobin A1c had been added, I explained to her what her hemoglobin A1c was, explained to her the findings and what the findings if they were positive how they would be treated. Patient understands, she has refused a head CT for her headache. Her blood pressure has improved and pretty much resolved and is now normal. The patient will be discharged on her own accord. To take her medications at home for her headache and her blood pressure. Differential diagnosis essential hypertension, uncontrolled due to the fact the patient had not taken her medications prior to being seen in her primary care doctor's office. I did encourage her to please take her medications prior to being seen in her doctor's office, and to take her medications as prescribed in the morning prior to doing any other activities. Possible type 2 diabetes with a new diagnosis due to the fact that her blood sugar was 389 here in the emergency room department <Jasmina Adhikari, - Last Filed: 03/10/24 08:42> Lab Data Labs: Lab Results 03/09/24 03/09/24 Range/Units 14:14 14:33 WBC 9.6 (4.5-11.0) X10^3/uL RBC 4.38 (4.0-5.2) X10^6/uL Hgb 12.8 (12.0-16.0) g/dL Hct 37.9 (36-46) % MCV 86.6 (80-100) fL MCH 29.3 (26-34) PG MCHC 33.9 (30-36) % RDW 13.2 (11.6-14.8) % Plt Count 288 (150-400) X10^3/uL Neut % (Auto) 66.0 (50-75) % Lymph % (Auto) 24.5 L (25-40) % [place] % (Auto) 6.0 (3-14) % Eos % (Auto) 2.2 (2-4) % Baso % (Auto) 1.3 (0-2) % Neut # (Auto) 6400 (7621-0552) /uL Lymph # (Auto) 2400 (3657-4496) /uL [place] # (Auto) 600 (0-900) /uL Eos # (Auto) 200 (0-450) /uL Baso # (Auto) 100 (0-100) /uL PT 12.0 (9.4-12.5) SECONDS INR 1.0 (0.9-1.3) APTT 36 (25.1-36.5) SECONDS Sodium 130 L (137-145) mmol/L Potassium 3.8 (3.4-5.1) mmol/L Chloride 98 (98-107) mmol/L Carbon Dioxide 22 (22-32) mmol/L BUN 13 (7-17) mg/dL Creatinine 0.88 (0.52-1.04) mg/dL Estimated GFR > 60 (>60) mL/min BUN/Creatinine Ratio 14.8 (6-22) Glucose 399 H (80-110) mg/dL Hemoglobin A1c 12.5 H (4.0-6.0) % Calcium 9.3 (8.4-10.2) mg/dL Magnesium 1.5 L (1.6-2.3) mg/dL Total Bilirubin 0.5 (0.2-1.3) mg/dL AST 28 (14-36) IU/L ALT 25 (<35) IU/L Alkaline Phosphatase 110 (38-126) U/L Total Creatine Kinase 103 (30-135) U/L Troponin I < 0.012 (0.01-0.034) ng/mL NT-Pro-B Natriuret Pep 50 (<450) pg/mL Total Protein 7.4 (6.3-8.2) g/dL Albumin 4.1 (3.5-5.0) g/dL Globulin 3.3 (1.7-4.1) g/dL Albumin/Globulin Ratio 1.2 (1.0-2.8) Lipase 175 (23-300) U/L ECG Data Attestation: I personally reviewed and interpreted this ECG as follows: Interpretation: Dr. Adhikari-normal sinus rhythm rate 77 MT interval 174 QRS 74 QTC 418 T-wave inversion noted in V2 and V3 no significant ST depressions or elevations no priors to compare [address] [address] Electrocardiogram Draft Patient: Ashleigh Higgins MR#: [id number] : 1945 Acct:[id number] Age/Sex: 79 / F Date of Service: 03/09/24 Loc: ED Accession Number: [id number] Procedure: EKG-12 Lead Ordering Provider: Jasmina Adhikari D.O. [address] [address] Test Date: 2024-03-09 Pat Name: Ashleigh Maynard Department: [facility] Room: Gender: Female Acute Care Assistant: MITCHEL : 1945 Requested By: Order Number: [id number] Reading MD: Measurements Intervals [place] Rate: 77 P: 49 MT: 174 QRS: 0 QRSD: 74 T: 22 QT: 370 QTc: 418 Interpretive Statements Normal sinus rhythm Nonspecific T wave abnormality Discharge Plan Departure Patient Disposition: Home Clinical Impression: Hypertension, essential Hypertension Qualifiers: Hypertension type: primary hypertension Qualified Code(s): I10 - Essential (primary) hypertension Type 2 diabetes mellitus Qualifiers: Diabetes mellitus detention insulin use: without truss builder use Diabetes mellitus complication status: without complication Qualified Code(s): E11.9 - Type 2 diabetes mellitus without complications Instructions: DI for High Blood Pressure Activity Restrictions/Additional Instructions: I have added a test onto the lab work that was drawn today, it checks for type 2 diabetes. Please call your primary care doctor on Tuesday to make an appointment to follow up on the hemoglobin A1c that I added onto her lab work. Concerns that your blood sugar was quite elevated here in the emergency room department, concerns that you might have type 2 diabetes. You will need follow-up, close monitoring of the blood sugar, if you do in fact have type 2 diabetes only be started on medications. Please take your medications as prescribed. Return to the emergency department as needed. I hope you feel better. Prescriptions: No Action bupropion HCl 300 mg tablet extended release 24 hr 300 mg PO DAILY Qty: 90 3RF omeprazole 40 mg capsule,delayed release(DR/EC) 40 mg PO DAILY Qty: 90 3RF ondansetron 8 mg tablet,disintegrating 8 mg PO DAILY PRN (Reason: nausea and vomiting) Qty: 60 1RF tizanidine 4 mg tablet 4 mg PO DAILY PRN (Reason: muscle spasticity) Qty: 30 1RF lorazepam 1 mg tablet 1 mg PO BID PRN (Reason: Anxiety) Qty: 60 2RF fluoxetine 20 mg capsule 20 mg PO DAILY Qty: 90 3RF lisinopril 10 mg tablet 10 mg PO DAILY Qty: 90 3RF meclizine 25 mg tablet 25 mg PO DAILY PRN (Reason: Dizziness) Tums 1 tab PO DAILY PRN (Reason: Acid Reflux) naratriptan 2.5 mg tablet 2.5 mg PO Q4H PRN (Reason: migraine headache) Qty: 14 2RF ibuprofen [Motrin IB] 200 mg tablet 400 mg PO DAILY PRN (Reason: migraine headache) (DME) Disabled Parking See Rx Instructions .ROUTE .MEDSUPPLY Qty: 1 0RF Rx Instructions: Patient qualifies for disabled parking as per the attached form. lubiprostone 8 mcg capsule 8 mcg PO BID triamcinolone acetonide 0.1 % cream 1 applic topical TID Qty: 80 0RF Referrals: Frankie Shultz MD [Primary Care Provider] - Stand Alone Forms: Patient Portal/API ED Sign-out <Jasmina Adhikari, - Last Filed: 03/10/24 08:42> Cosign ED Attending Allieature Attestation: Discussed case with Victor Manuel BALL. Patient sent to emergency department for elevated blood pressure. Blood pressure has come down without any sort of intervention. She has no evidence of end-organ damage. She is found to be hyperglycemic with a glucose of 399 hemoglobin A1c 12.5. No evidence of DKA. Recommend patient follow-up with her primary care provider in regards to her new diagnosis of diabetes. Probably contributing to some of her symptoms I never saw or evaluated patient myself I was available for consultation.
[2024-03-09 17:09] VITALS: BP 144/66; PULSE 69; RESP 14; O2SAT 97
[2024-03-09 18:37] LABS: Hemoglobin A1C% w Est Avg Glu 12.5 % (4.0-6.0)
== END 2024-03-09 17:14 | disposition home or self-care (01) ==
PROVIDERS: Emergency Medicine; Emergency Provider Physician Assistant; PCP Internal Medicine
DX: I10 Essential (primary) hypertension (principal); R07.9 Chest pain, unspecified; E11.65 Type 2 diabetes mellitus with hyperglycemia; R51.9 Headache, unspecified; Z79.899 Other long term (current) drug therapy
CPT/HCPCS: 36415; 71045; 80053; 82550; 83036; 83690; 83735; 83880; 84484; 85025; 85610; 85730; 93005; 99283; 99284

== ENCOUNTER → 2024-09-26 13:49 | Outpatient (CLI) | payer MEDICARE, BC, SELFPAY ==
--- NOTE | 2024-09-26 | DI.MRI.S_ITS ---
PROCEDURE: MR HEAD/BRAIN WO/W CON INDICATIONS: migraine w/o aura TECHNIQUE: Noncontrast axial T1 spin echo, axial T2 fast spin echo, sagittal and axial FLAIR, coronal T2 fast spin echo, axial gradient echo, axial diffusion and ADC through the brain. After the administration of contrast, axial and coronal and sagittal T1 spin echo with fat saturation through the brain. COMPARISON: None. FINDINGS: Image quality: Excellent. CSF spaces: Basal cisterns are patent. No extra-axial fluid collections. Ventricles are normal in size and shape. Brain: No midline shift. No intracranial bleeds or masses. No abnormal intracranial enhancement. There is cerebral volume loss for age. There is periventricular white matter chronic small vessel ischemic change. The brainstem appears normal. Diffusion-weighted images demonstrate no acute infarct. No chronic ischemic insults. Normal intravascular flow voids are present. Skull and face: Calvarial marrow is normal in signal. Bilateral lens replacements. Otherwise, the orbits are unremarkable. Sinuses: Sinuses and mastoids appear clear. IMPRESSION: No cause for patient's symptoms is identified. No acute intracranial abnormalities or abnormal intracranial enhancement. Age-related global volume loss and chronic microvascular ischemic changes are present. Dictated by: Mason Reyes M.D. on 09/26/2024 at 15:18 Approved by: Mason Reyes M.D. on 09/26/2024 at 15:23
[2024-09-26 16:39] LABS: Hemoglobin A1C% w Est Avg Glu 11.5 % (4.0-6.0)
[2024-09-26 17:26] LABS: Alanine Aminotransferase 26 IU/L (<35); Albumin 4.1 g/dL (3.5-5.0); Albumin Globulin Ratio 1.6 (1.0-2.8); Alkaline Phosphatase 83 U/L (38-126); Aspartate Aminotransferase 24 IU/L (14-36); Bilirubin Total 0.4 mg/dL (0.2-1.3); Blood Urea Nitrogen 16 mg/dL (7-17); Calcium 9.7 mg/dL (8.4-10.2); Carbon Dioxide 21 mmol/L (22-32); Chloride 102 mmol/L (98-107); Estimated Glomerular Filt Rate 53 mL/min (>60); Globulin 2.6 g/dL (1.7-4.1); Glucose 219 mg/dL (80-110); HEMOLYSIS < 15 (0-50); Potassium 4.7 mmol/L (3.4-5.1); Sodium 135 mmol/L (137-145); Total Protein 6.7 g/dL (6.3-8.2)
== END ==
PROVIDERS: PCP Internal Medicine
DX: G43.019 Migraine without aura, intractable, without status migrainosus (principal); E11.65 Type 2 diabetes mellitus with hyperglycemia; I10 Essential (primary) hypertension
CPT/HCPCS: 36415; 70553; 80053; 83036; A9579